=== PATIENT | female | born 1995 | race Hispanic/Latino ===

== ENCOUNTER 2016-06-29 22:36 | Emergency (ER) | payer OTHER ==
[~2016-06-29] VITALS: Ht 170.2 cm; Wt 133.8 kg
[~2016-06-29 22:36] MED LIST: ANTIVERT 25MG #1 PAC PO; KETOROLAC TROME10 M1 PO; LEVSIN/SL0.125 MG SL; MOTRIN800 MG PO; NEXIUM 40MG40 MG PO; OMEPRAZOLE D/R20 MG PO; ZOFRAN4 M1 SL
--- NOTE | 2016-06-29 23:13 | ED ANKLE/FOOT INJURY COMPLAINT ---
History of Present Illness General Chief Complaint: Foot or Ankle Injury Stated Complaint: LEFT ANKLE PAIN Source: patient Exam Limitations: no limitations Vital Signs & Intake/Output Vital Signs & Intake/Output Vital Signs Date Time Temp Pulse Resp B/P Pulse O2 O2 Flow FiO2 Ox Delivery Rate 06/30 0046 98.9 82 18 138/80 98 Room Air 06/29 2248 98.7 84 18 143/80 97 Room Air ED Intake and Output 06/30 0000 06/29 1200 Intake Total 0 Output Total Balance 0 Intake, Oral 0 Patient 295 lb Weight Allergies Coded Allergies: cyclobenzaprine (From Flexeril) (Intermediate, DIZZINESS 07/25/15) Reconcile Medications Esomeprazole (Nexium) 40 MG CAPSULE.DR 1 CAP PO DAILY GI (Reported) Hyoscyamine Sulfate (Levsin-Sl) 0.125 MG TAB 1-2 TAB SL Q4P PRN abd pain Ketorolac Tromethamine 10 MG TABLET 1 TAB PO TID PRN PAIN Meclizine (Antivert) 25 MG PAC 1 TAB PO TID PRN DIZZINESS Meloxicam (Mobic) 15 MG TABLET 1 TAB PO DAILY PRN PAIN/INFLAMMATION Ondansetron (Zofran Odt) 4 MG ODT 1 ODT SL Q6P PRN NAUSEA Tramadol HCl 50 MG TABLET 1 TAB PO Q6 PRN pain Triage Note: PT TO TRIAGE WITH C/O L ANKLE PAIN 8/10 S/P TWISTED R ANKLE LAST NIGHT, +SWELLING AND BRUISING TO R ANKLE. ICE PACK PROVIDED, PT MEDICATED WITH MOTRIN 400MG PO IN TRIAGE. Triage Nurses Notes Reviewed? yes : No Patient currently breastfeeds: No HPI: Patient is a 20 year old female presents complaining of left ankle pain s/p twisted last night. Patient everted her ankle last night. Pain is moderate at rest, worse with movement and palpation. Patient took Tylenol today with no improvement. Denies head injury, neck pain, back pain, numbness, decreased range of motion. (IVANIA MARIE) Past History Travel History Traveled to [place] past 21 day No Medical History Any Pertinent Medical History? 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 No (IVANIA MARIE) Review of Systems Review of Systems Constitutional: Denies: chills, fever. EENTM: Reports: no symptoms. Respiratory: Denies: short of breath. Cardiovascular: Denies: chest pain. GI: Denies: abdominal pain. Musculoskeletal: Reports: see HPI. Denies: back pain, neck pain. Neurological/Psychological: Denies: headache, numbness, paresthesia. Hematologic/Endocrine: Reports: bruising (mild left ankle). Denies: bleeding. Immunologic/Allergic: Denies: splenectomy. (IVANIA MARIE) Physical Exam Physical Exam General Appearance: well developed/nourished, alert, awake Head: atraumatic, normal appearance Eyes: Bilateral: normal appearance. Ears, Nose, Throat: hearing grossly normal Neck: normal inspection, supple, full range of motion Cardiovascular/Respiratory: no respiratory distress Back: normal inspection, normal range of motion Leg/Knee/Thigh Left: normal range of motion, normal inspection Ankle Left: moderate swelling over the lateral malleolus with mild bruising inferior to lateral malleolus. Mild tenderness medial malleolus. Full range of motion. Joint stable. Foot Left: normal inspection, normal range of motion, nontender Neuro/Vascular: normal motor function, normal sensation Tendon: normal tendon function (IVANIA MARIE) Progress Differential Diagnosis: fracture, dislocation, sprain, contusion Plan of Care: Orders Procedure Date/time Status Durable Medical Equipment 06/30 0034 Active URINE 06/29 2334 Complete Laboratory Tests 06/29/16 2336: Urine Test NEGATIVE 06/29/16 2334: Urine Test Cancelled 06/30/2016 12:38:42 AM: Results of x-ray discussed with patient. Air splint placed to the left ankle by nursing staff. Patient appears stable for discharge. Instructed to follow-up with her primary care provider or with orthopedics if no improvement within 2 days. (IVANIA MARIE) Diagnostic Imaging: Viewed by Me: Radiology Read. Discussed w/RAD: Radiology Read. Radiology Impression: PATIENT: MIKE BELTRAN PRESENT AGE: 20 PATIENT ACCOUNT NO: [id number] : 94 LOCATION: [facility] ORDERING PHYSICIAN: IVANIA LUDWIG SERVICE DATE: 06/29/16 EXAM TYPE: RAD - XRY-ANKLE 3 OR MORE VIEWS L EXAMINATION: XR ANKLE, LEFT CLINICAL INFORMATION: Swelling and pain. Left ankle injury. COMPARISON: None TECHNIQUE: AP, lateral, and mortise views of the left ankle. FINDINGS: No acute fracture or dislocation. The ankle mortise is congruent. There is mild circumferential soft tissue swelling, most prominent laterally. No ankle joint effusion. IMPRESSION: Mild soft tissue swelling. No acute fracture or malalignment. DICTATED BY: STEPHANIE WEBSTRE MD DATE/TIME DICTATED:06/30/1621 PALLIATIVE CARE PHYSICIAN: ANUM DATE/TIME TRANSCRIBED:06/30/1621 CONFIDENTIAL, DO NOT COPY WITHOUT APPROPRIATE AUTHORIZATION. <Electronically signed in Other Vendor System> SIGNED BY: STEPHANIE WEBSTER MD 06/30/1625 (IVANIA MARIE) Departure Departure Time of Disposition: 34 Disposition: HOME OR SELF CARE Condition: Stable Clinical Impression Primary Impression: Left ankle sprain Qualifiers: Encounter type: initial encounter Involved ligament of ankle: unspecified ligament Qualified Code: S93.402A - Sprain of unspecified ligament of left ankle, initial encounter Referrals: MCKAY PHOENIX DO (PCP/Family) VALENTE ONEILL MD Additional Instructions: Rest, ice for 20 minutes 4-5 times a day, elevate, wear her splint for support. Follow-up with your primary doctor or with Valente Oneill MD (orthopedist) if no improvement by Friday. Return to the emergency department if worsening of symptoms. Departure Forms: Customer Survey General Discharge Information Prescriptions: Current Visit Scripts Meloxicam (Mobic) 1 TAB PO DAILY PRN PAIN/INFLAMMATION #10 TAB Tramadol HCl 1 TAB PO Q6 PRN pain #10 TAB (IVANIA MARIE) PA/TERRITORY BUSINESS MANAGER Co-Sign Statement Statement: ED Attending supervision documentation- [] I saw and evaluated the patient. I have also reviewed all the pertinent lab results and diagnostic results. I agree with the findings and the plan of care as documented in the PA's/TERRITORY BUSINESS MANAGER's documentation. x I have reviewed the ED Record and agree with the PA's/TERRITORY BUSINESS MANAGER's documentation. [] Additions or exceptions (if any) to the PAs/TERRITORY BUSINESS MANAGER's note and plan are summarized below: [] (REMY ROBERTS,KENAN)
--- NOTE | 2016-06-30 00:26 | RADIOLOGY REPORT ---
EXAMINATION: XR ANKLE, LEFT CLINICAL INFORMATION: Swelling and pain. Left ankle injury. COMPARISON: None TECHNIQUE: AP, lateral, and mortise views of the left ankle. FINDINGS: No acute fracture or dislocation. The ankle mortise is congruent. There is mild circumferential soft tissue swelling, most prominent laterally. No ankle joint effusion. IMPRESSION: Mild soft tissue swelling. No acute fracture or malalignment.
[2016-06-30] MEDS ORDERED: TRAMADOL HCL50 M1 PO (00:36)
[2016-06-30] MEDS ORDERED: MOBIC15 M1 PO (00:36)
[2016-06-30 00:46] VITALS: BP 138/80
== END 2016-06-30 00:49 ==
LOC: ERH 22:36
DX: S93.402A Sprain of unspecified ligament of left ankle, initial encounter (principal); X58.XXXA Exposure to other specified factors, initial encounter
CPT/HCPCS: 73610-LT; 81025

== ENCOUNTER 2017-09-09 16:44 | Emergency (ER) | payer OTHER ==
[~2017-09-09] VITALS: Ht 170.2 cm; Wt 129.3 kg
[~2017-09-09 16:44] MED LIST changes: +HYDROXYZINE HCL25 M2 PO; +MOBIC15 M1 PO; +PREDNISONE10 M2 PO; +TRAMADOL HCL50 M1 PO
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
[2017-09-09 20:27] VITALS: BP 134/86
== END 2017-09-09 20:28 ==
LOC: ERH 16:44
DX: S16.1XXA Strain of muscle, fascia and tendon at neck level, initial encounter (principal); S39.012A Strain of muscle, fascia and tendon of lower back, initial encounter; V49.40XA Driver injured in collision with unspecified motor vehicles in traffic accident, initial encounter; Y92.9 Unspecified place or not applicable
CPT/HCPCS: 72040; 72100

== ENCOUNTER 2017-12-07 01:39 | Emergency (ER) | payer OTHER ==
[~2017-12-07 01:39] MED LIST changes: +PERCOCET 5-3251 EACH PO
[2017-12-07] MEDS ORDERED: GABAPENTIN300 M2 PO (01:55)
[2017-12-07] MEDS ORDERED: PANTOPRAZOLE SO40 M1 PO (01:55)
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
[2017-12-07] MEDS ORDERED: PERCOCET 5-3251 EACH PO (05:01)
[2017-12-07 05:24] VITALS: BP 115/56
== END 2017-12-07 05:30 ==
LOC: ERH 01:39
DX: M54.9 Dorsalgia, unspecified (principal); M54.2 Cervicalgia
CPT/HCPCS: 96361; 96374; 96375; J1885; J2405; J2930